=== PATIENT | female | born 1970 | race Caucasian/White ===

== ENCOUNTER 2017-07-12 07:08 | Emergency (ER) | payer BC ==
[~2017-07-12] VITALS: Ht 154.9 cm; Wt 74.8 kg
[2017-07-12 07:50] LABS: BILIRUBIN,URINE NEGATIVE (NEGATIVE); CLARITY,URINE CLEAR; COLOR,URINE YELLOW; GLUCOSE, URINE (UA) NEGATIVE (NEGATIVE); KETONES,URINE NEGATIVE (NEGATIVE); LEUKOCYTE ESTERASE ,URINE 2+ (NEGATIVE); NITRITE,URINE NEGATIVE (NEGATIVE); PH,URINE 8 (5-9); PROTEIN,URINE NEGATIVE (NEGATIVE); UROBILINOGEN,URINE NORMAL (NORMAL)
[2017-07-12] MEDS ORDERED: CETI10CA PO (07:53)
[2017-07-12 08:04] LABS: BACTERIA,URINE TRACE /HPF; WBC,URINE 25-50 /HPF
[2017-07-12] MEDS ORDERED: SULF1TAB35 PO (08:26)
[2017-07-12] MEDS ORDERED: PHEN-640 PO (08:26)
--- NOTE | 2017-07-12 08:26 | ED GU-Female ---
General Chief Complaint: -Female Stated Complaint: BLADDER INFECTION Nursing Triage Note: ARRIVED VIA AMB WITH COMPLAINTS OF PAIN UPON URINATION STARTING YESTERDAY. Nursing Sepsis Screen: No Definite Risk Source: patient, family Exam Limitations: no limitations History of Present Illness Date Seen by Provider: Jul 12, 2017 Time Seen by Provider: 07:42 Initial Comments This 47-year-old woman presents to the emergency room with complaints of "extreme pain" with the passing of urine. She denies any abdominal pain, nausea , vomiting, diarrhea, constipation, etc. She reports there was some small amount of blood in her urine. She has had no fever. She has history of similar symptoms with prior urinary tract infections. Allergies and Home Medications Allergies Coded Allergies: aspirin (Verified Allergy, Unknown, 07/12/17) Home Medications Cetirizine HCl 10 Mg Capsule, 10 MG PO DAILY, (Reported) Phenazopyridine HCl 200 Mg Tablet, 1 TAB PO TID PRN for PAIN-MODERATE TO SEVERE , #10 Prescribed by: YODIT ANTON on 07/12/17 0826 Sulfamethoxazole/Trimethoprim 1 Each Tablet, 1 EACH PO BID, #14 Prescribed by: YODIT ANTON on 07/12/17 0826 Constitutional: no symptoms reported EENTM: no symptoms reported Respiratory: no symptoms reported Cardiovascular: no symptoms reported Gastrointestinal: no symptoms reported Genitourinary: see HPI : No Musculoskeletal: no symptoms reported Skin: no symptoms reported Psychiatric/Neurological: No Symptoms Reported Endocrine: No Symptoms Reported Past Winktfm-Jcjrxm-Ejyosx Hx Patient Social History Alcohol Use: Denies Use Recreational Drug Use: No Smoking Status: Never a Smoker Recent Foreign Travel: No Contact w/Someone Who Travel: No Recent Infectious Disease Expo: No Recent Hopitalizations: No Seasonal Allergies Seasonal Allergies: Yes Surgeries History of Surgeries: Yes (DENTAL) Respiratory History of Respiratory Disorde: No Cardiovascular History of Cardiac Disorders: No Neurological History of Neurological Disord: No Genitourinary History of Genitourinary Disor: Yes (Recurrent UTI) Gastrointestinal History of Gastrointestinal Di: No Musculoskeletal History of Musculoskeletal Dis: No Endocrine History of Endocrine Disorders: No HEENT History of HEENT Disorders: No Cancer History of Cancer: No Psychosocial History of Psychiatric Problem: No Integumentary History of Skin or Integumenta: No Physical Exam Vital Signs Vital Sign - Last 12Hours 07/12/17 07:40 Temp 98.0 Pulse 90 Resp 18 B/P (MAP) 180/114 (136) Pulse Ox 100 Capillary Refill : Less Than 3 Seconds General Appearance: WD/WN, no apparent distress HEENT: PERRL/EOMI, normal ENT inspection Neck: normal inspection Cardiovascular: regular rate, rhythm, no edema, no murmur Respiratory: lungs clear, normal breath sounds, no respiratory distress, no accessory muscle use Gastrointestinal: normal bowel sounds, non tender, soft Extremities: normal inspection 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, no motor/sensory deficits, alert, normal mood/affect, oriented x 3 Skin: normal color, warm/dry Progress/Results/Core Measures Suspected Sepsis Recent Fever Within 48 Hours: No Infection Criteria Present: Suspected New Infection New/Unexplained Altered Menta: No Sepsis Screen: No Definite Risk Sepsis Diagnosis: SIRS Temperature:98.0 Pulse: 90 Respiratory Rate: 18 Blood Pressure 180 /114 Mean: 136 Results/Orders Lab Results My Orders Orders - YODIT ANDREWS MD Urine Culture (07/12/17 07:40) Sulfamethoxazole/Trimet Ds Tab (Bactrim (07/12/17 08:30) Phenazopyridine Tablet (Pyridium Tablet) (07/12/17 08:30) Vital Signs/I&O Capillary Refill : Less Than 3 Seconds Blood Pressure Mean: 136 Progress Note : Progress Note Patient was found to have urinary tract infection by urinalysis. Pharmacies are still closed. Therefore the first dose of Pyridium and Bactrim were administered in the ER. Patient states Bactrim has worked well for her in the past. Departure Impression Impression: Primary Impression: Urinary tract infection Qualified Codes: N39.0 - Urinary tract infection, site not specified Disposition: HOME, SELF-CARE Condition: Improved Departure-Patient Inst. Decision time for Depature: 08:15 Referrals: SARAH ORTA MD (PCP/Family) Primary Care Physician Patient Instructions: Urinary Tract Infection, Adult (DC) Add. Discharge Instructions: Drink plenty of clear liquids. Complete your antibiotics as prescribed. You may use the Pyridium as prescribed for bladder and urethral pain. Please be advised this medication may turn your urine and oranges sure reddish color. This is normal. Follow-up with your primary care provider on [place] to review urine culture results. Return to care if symptoms worsen. All discharge instructions reviewed with patient and/or family. Voiced understanding. Scripts Phenazopyridine HCl (Pyridium) 200 Mg Tablet 1 TAB PO TID Y for PAIN-MODERATE TO SEVERE, #10 TAB Prov: YODIT ANDREWS MD 07/12/17 Sulfamethoxazole/Trimethoprim (Bactrim Ds Tablet) 1 Each Tablet 1 EACH PO BID, #14 TAB Prov: YODIT ANDREWS MD 07/12/17 Copy Copies To 1: SARAH ORTA MD, JOSHUA T MD Jul 12, 2017 08:26
[2017-07-12 08:30] VITALS: BP 156/91
[2017-07-12] MEDS ORDERED: TRIM/SULFAMETH 160/800 (SEPTRA DS) TAB PO ONE (08:30)
[2017-07-12] MEDS ORDERED: PHENAZOPYRIDINE 100 MG (PYRIDIUM) TABLET PO ONE (08:30)
== END 2017-07-12 08:30 | disposition home or self-care (01) ==
LOC: ER 07:12
DX: N39.0 Urinary tract infection, site not specified (principal); Z88.6 Allergy status to analgesic agent
CPT/HCPCS: 81000; 87088; 87186; 99283